=== PATIENT | female | born 1935 | race Caucasian/White ===

== ENCOUNTER 2018-03-21 11:40 | Emergency (ER) | payer SELFPAY | END 2018-03-21 13:30 | disposition home or self-care (01) | LOC: FTE 11:40 | DX: S81.859A Open bite, unspecified lower leg, initial encounter (principal); I10 Essential (primary) hypertension; E11.9 Type 2 diabetes mellitus without complications; W54.0XXA Bitten by dog, initial encounter; Y92.9 Unspecified place or not applicable | CPT/HCPCS: 99283 ==